=== PATIENT | female | born 1945 | race American Indian/Alaskan Native ===

== ENCOUNTER 2019-12-27 11:51 | Outpatient (CLI) | payer MEDICARE, OTHER, SELFPAY ==
--- NOTE | 2019-12-27 12:02 | MM_ITS ---
WS: [id number] BILATERAL DIGITAL SCREENING MAMMOGRAPHY WITH CAD CLINICAL INFORMATION: SCREENING HISTORY: Screening mammogram. No current complaints. COMPARISON: TECHNIQUE: Bilateral CC and MLO views. FINDINGS: Scattered fibroglandular densities bilaterally. No suspicious focal mass, asymmetry, calcifications, or architectural distortion. No evidence of malignancy. MM/[place] [id number] IMPRESSION: BI-RADS: 1-Negative FOLLOW UP: 1 Year Follow-up Recommend return to annual screening mammography.
== END 2019-12-27 11:52 | disposition home or self-care (01) ==
LOC: RADSHAW 11:58
PROVIDERS: PCP Family Medicine; Visit Provider Registered Nurse
DX: Z12.31 Encounter for screening mammogram for malignant neoplasm of breast (principal)
CPT/HCPCS: 77067

== ENCOUNTER 2020-05-16 10:52 | Outpatient (CLI) | payer MEDICARE, OTHER, SELFPAY ==
--- NOTE | 2020-05-16 10:58 | MR_ITS ---
WS: [id number] MRI HEAD WITH CONTRAST TECHNIQUE: Sagittal T1, T2 axial, T2 axial FLAIR, axial susceptibility weighted imaging, axial diffus ion weighted images, and coronal T2 images were obtained. Pre and post-T1 axial and post T1 coronal i mages. ADC and FSPGR images. CLINICAL INFORMATION: HEADACHE COMPARISON: None. FINDINGS: No evidence of restricted diffusion to suggest acute ischemia. Ventricular system and basal cisterns are patent. Single focus of T2 hyperintensity in the right centrum semiovale. No other suspicious int racranial signal abnormalities. Moderate parenchymal volume loss. Normal posterior fossa. Normal vasc ular flow voids at the skull base. No extra-axial fluid collections. No evidence of mass or mass effe ct. Paranasal sinuses are well aerated. Mild mucosal thickening left mastoid air cells. No hemosiderin on susceptibly weighted images. Moderate symmetric atrophy involving the temporal lobe s and hippocampal formations. Normal optic chiasm and pituitary infundibulum. Normal cavernous sinuses and Meckel's cave. No abnormal intraparenchymal enhancement. Normal dural ve nous sinuses. MR/MR head wo/w con [id number] IMPRESSION: 1. No evidence of restricted diffusion to suggest acute ischemia. 2. Single focus of T2 hyperintensity in the right centrum semiovale likely due to small vessel change or prior ischemia. Otherwise no significant small vesse l changes. 3. Moderate parenchymal volume loss. 4. Moderate symmetric atrophy involving the temporal lobes and hippocampal for mations. 5. Normal optic chiasm and pituitary infundibulum. 6. No abnormal intracranial enhancement. 7. No hemosiderin on the susceptibility weighted images.
[2020-05-16] MEDS: gadobenate dimeglumine 20 mL vial IV (12:17)
== END 2020-05-16 10:53 | disposition home or self-care (01) ==
LOC: RADSHAW 10:53
PROVIDERS: Radiology Neuroradiology; PCP Family Medicine; Visit Provider Specialist
DX: R51.9 Headache, unspecified (principal); G31.9 Degenerative disease of nervous system, unspecified
CPT/HCPCS: 70553; 82565; A9577

== ENCOUNTER → 2021-03-06 14:03 | Outpatient (BNVA) | payer MEDICARE, OTHER, SELFPAY | PROVIDERS: PCP Family Medicine; Referring Provider Internal Medicine Cardiovascular Disease; Visit Provider Internal Medicine | DX: E11.9 Type 2 diabetes mellitus without complications (principal); I10 Essential (primary) hypertension; R23.2 Flushing; L74.9 Eccrine sweat disorder, unspecified; L68.0 Hirsutism; M79.7 Fibromyalgia; Z86.73 Personal history of transient ischemic attack (TIA), and cerebral infarction without residual deficits; Z79.84 Long term (current) use of oral hypoglycemic drugs | CPT/HCPCS: 99204 ==

== ENCOUNTER 2021-03-08 11:50 | Outpatient (CLI) | payer MEDICARE, OTHER, SELFPAY ==
[2021-03-08 13:09] LABS: Free T4 Free Thyroxine 1.19 ng/dL (0.82-1.77); Testosterone Total 2.5 ng/dL (2.9-40.8); Thyroid Stimulating Hormone 1.67 uIU/mL (0.27-4.20)
[2021-03-08 14:10] LABS: Follicle Stimulating Hormone 56.2 mIU/mL; Luteinizing Hormone 23.9 mIU/mL (0.5-41.7)
[2021-03-09 06:18] LABS: T3 Total 85 ng/dL (76-181)
[2021-03-09 14:51] LABS: Dehydroepiandrosterone Sulfate 50 mcg/dL (7-177)
[2021-03-13 14:22] LABS: IGF1 LC/MS 197 ng/mL (34-245); Z Score (Female) 1.4 SD (-2.0 - +2.0)
[2021-03-15 19:47] LABS: Estrogens Total 106.7 pg/mL
== END 2021-03-08 11:51 | disposition home or self-care (01) ==
LOC: LAB 11:54
PROVIDERS: PCP Family Medicine; Visit Provider Internal Medicine
DX: E11.9 Type 2 diabetes mellitus without complications (principal); I10 Essential (primary) hypertension; L68.0 Hirsutism; L74.9 Eccrine sweat disorder, unspecified; M79.7 Fibromyalgia; R23.2 Flushing; Z90.89 Acquired absence of other organs; Z98.891 History of uterine scar from previous surgery
CPT/HCPCS: 36415; 82627; 82672; 83001; 83002; 84305; 84403; 84439; 84443; 84480

== ENCOUNTER 2021-03-12 13:27 | Outpatient (CLI) | payer MEDICARE, OTHER, SELFPAY ==
[2021-03-16 16:09] LABS: 24 Hour Urine Volume 2500 mL; 5-HIAA, 24 Hour Urine 4.8 mg/24 h (<=6.0)
[2021-03-27 18:08] LABS: Free Cortisol Urine 17.3 mcg/24 h (4.0-50.0); Total Urine 2500 mL; Urine Creatinine 1.22 g/24 h (0.50-2.15)
== END 2021-03-12 13:28 | disposition home or self-care (01) ==
LOC: LAB 13:34
PROVIDERS: PCP Family Medicine; Visit Provider Internal Medicine
DX: E11.9 Type 2 diabetes mellitus without complications (principal); I10 Essential (primary) hypertension; L68.0 Hirsutism; L74.9 Eccrine sweat disorder, unspecified; M79.7 Fibromyalgia; R23.2 Flushing; Z90.89 Acquired absence of other organs; Z98.891 History of uterine scar from previous surgery
CPT/HCPCS: 82530; 83497

== ENCOUNTER → 2021-07-02 09:15 | Outpatient (BNVA) | payer MEDICARE, OTHER, SELFPAY | PROVIDERS: PCP Family Medicine; Visit Provider Internal Medicine | DX: E11.9 Type 2 diabetes mellitus without complications (principal); R23.2 Flushing; L74.9 Eccrine sweat disorder, unspecified; L68.0 Hirsutism; Z79.84 Long term (current) use of oral hypoglycemic drugs; Z86.73 Personal history of transient ischemic attack (TIA), and cerebral infarction without residual deficits | CPT/HCPCS: 99214 ==

== ENCOUNTER → 2021-08-13 14:24 | Outpatient (BNVA) | payer MEDICARE, OTHER, SELFPAY | PROVIDERS: PCP Family Medicine; Visit Provider Internal Medicine | DX: I10 Essential (primary) hypertension (principal); Z86.73 Personal history of transient ischemic attack (TIA), and cerebral infarction without residual deficits | CPT/HCPCS: 99213 ==

== ENCOUNTER → 2022-05-29 13:06 | Outpatient (BNVA) | payer MEDICARE, OTHER, SELFPAY | PROVIDERS: PCP Family Medicine; Visit Provider Nurse Practitioner Family | DX: I10 Essential (primary) hypertension (principal); Z79.82 Long term (current) use of aspirin | CPT/HCPCS: 99213 ==

== ENCOUNTER → 2023-04-02 09:57 | Outpatient (BNVA) | payer MEDICARE, OTHER, SELFPAY | PROVIDERS: PCP Family Medicine; Visit Provider Specialist | DX: M25.562 Pain in left knee (principal) | CPT/HCPCS: 73560; 73565; 99204 ==

== ENCOUNTER → 2023-08-26 12:58 | Outpatient (BNVA) | payer MEDICARE, OTHER, SELFPAY | PROVIDERS: PCP Family Medicine; Visit Provider Podiatrist Foot & Ankle Surgery | DX: G62.9 Polyneuropathy, unspecified; Q66.221 Congenital metatarsus adductus, right foot; Q66.222 Congenital metatarsus adductus, left foot; E11.42 Type 2 diabetes mellitus with diabetic polyneuropathy | CPT/HCPCS: 99203 ==

== ENCOUNTER → 2023-12-10 14:45 | Outpatient (BNVA) | payer MEDICARE, OTHER, SELFPAY | PROVIDERS: PCP Family Medicine; Visit Provider Internal Medicine Cardiovascular Disease | DX: I10 Essential (primary) hypertension (principal) | CPT/HCPCS: 99213 ==

== ENCOUNTER → 2025-01-21 09:27 | Outpatient (BNVA) | payer MEDICARE, OTHER, SELFPAY | PROVIDERS: PCP Family Medicine; Visit Provider Internal Medicine Cardiovascular Disease | DX: I10 Essential (primary) hypertension (principal); E78.5 Hyperlipidemia, unspecified; E11.9 Type 2 diabetes mellitus without complications; Z86.73 Personal history of transient ischemic attack (TIA), and cerebral infarction without residual deficits; Z79.84 Long term (current) use of oral hypoglycemic drugs | CPT/HCPCS: 99214 ==

== ENCOUNTER → 2025-03-21 09:54 | Outpatient (BNVA) | payer MEDICARE, OTHER, SELFPAY | PROVIDERS: PCP Family Medicine; Visit Provider Specialist | DX: M17.12 Unilateral primary osteoarthritis, left knee (principal) | CPT/HCPCS: 20610; 73560; 73565; 99204; J7318 ==